=== PATIENT | female | born 1970 | race Caucasian/White ===

== ENCOUNTER 2024-01-20 18:31 | Emergency (ER) | payer BC, SELFPAY ==
[2024-01-20 18:35] VITALS: BP 134/86
--- NOTE | 2024-01-20 19:36 | ED.MUSCINJ ---
HPI-Injury
General
Chief Complaint: Musculo-Skeletal Complaint
Source: patient
Exam Limitations: none
Time Seen by Provider: 01/20/24 19:24
History of Present Illness-Injury
Initial Injury comments:
53-year-old female presents after a twisting injury to the left ankle resulting in a fall. She complains of right hand and left ankle pain and swelling. She has been unable to bear weight on her left ankle. 9 years ago, she had a fracture of her
ankle that required open reduction internal fixation. No head strike. No neck pain or back pain. No other complaints at this time.
Past History
Past History
ED Past Medical History: HTN, Hypothyroidism, Psychiatric (Depression) and Other (Psoriatic arthritis)
ED Past Surgical History: Cholecystectomy
Social History
Tobacco: Non-smoker
Alcohol: None
Personal:
Living: with family
Family History
Family History: Negative Diabetes, Hypertension, Early CAD, Asthma or Cancer
Phy Exam
Physical Exam
Physical Exam:
General: Well-appearing female no acute respiratory distress
Musculoskeletal exam: Left ankle swollen ecchymotic and tender inferior to the distal fibula. The medial malleolus and deltoid ligament area also slightly tender. There is good range of motion. Increased pain with resisted eversion of the foot.
Right hand is swollen ecchymotic and tender over the middle finger MCP. No deformity is able make a full fist
Skin is intact no laceration
Vascular: 2+ dorsalis pedis pulse left foot
Ext: NO cyanosis or edema.
Injury Course
Orders/Labs/Results
Orders:
Orders
01/20/24 18:33
CR Ankle - Left Min 3 Views Urgent
Comment:
Reason For Exam: pain
Hand, Right 3 View [CR Hand - Right Min 3 Views] Urgent
Comment:
Reason For Exam: pain
01/20/24 19:35
Ortho Boot Left- Treatment ONCE
Short or tall?: Tall
MDM/Problems Addressed
Differential Diagnosis Includes:
Left ankle and right hand pain after a fall today. Consider fracture versus sprain versus dislocation
I personally visualized x-rays of both the right hand and left ankle. There is no acute bony abnormality. I suspect sprain of the ankle. Will attempt to fit for orthopedic boot for ambulatory assistance. Recommended rest and ibuprofen. Stable
for discharge
*Critical Care Note
Total Time (30-74mins, 75-104mins- exclusive of procedures): Not Applicable
ED Attending Note
-
Portions of this chart may have been created with voice recognition software.� Occasional wrong word or��sound alike� substitutions may have occurred due to the inherent limitations of voice recognition software.
Discharge Plan
Departure
Patient Disposition: Home (Routine Discharge)
Date of Disposition: 01/20/24
Time of Disposition: 19:40
Patient with high blood pressure during this ER visit?: No
Discharge Problem:
Ankle sprain
Instructions: Muscle and Bone Pain (DC)
Prescriptions:
No Action
bupropion HCl 150 MG tablet extended release 24 hr
450 mg PO DAILY Qty: 0
levothyroxine 88 MCG tablet
88 mcg PO DAILY Qty: 0
lisinopril 10 MG tablet
10 mg PO DAILY Qty: 0
norgestimate-ethinyl estradiol [Tri-Sprintec (28)] 1 TAB tablet
1 tab PO DAILY Qty: 0
duloxetine 60 MG capsule,delayed release(DR/EC)
60 mg PO DAILY Qty: 0
abatacept [Orencia ClickJect] 125 MG/ML auto-injector
125 mg SC FR
acetaminophen [Tylenol Extra Strength] 500 MG tablet
1,000 mg PO DAILYPRN PRN (Reason: mild pain)
ibuprofen 200 MG tablet
400 mg PO TIDPRN PRN (Reason: mild pain)
multivitamin with folic acid [Tab-A-Mis] 1 TABLET tablet
1 tab PO DAILY
Fiber
2 tab PO DAILY
prednisone 10 MG tablet
10 mg PO .TAPER Qty: 30 0RF
Rx Instructions:
Take 40mg daily x3days, 30mg daily x3days,
20mg daily x3days, 10mg daily x3days.
diphenhydramine HCl [Banophen] 25 MG capsule
25 mg PO Q4HPRN PRN (Reason: allergy symptoms) Qty: 30 0RF
Referrals:
Ivonne Etienne MD [Family Provider] -
Stand Alone Forms: Return to Work
Activity Restrictions/Additional Instructions:
Rest. Use brace for support. Elevate for swelling use ibuprofen or Tylenol for pain return if worse otherwise follow-up with your doctor.
Discharge Date and Time
Print Language: CONGOLESE
== END 2024-01-20 20:25 | disposition home or self-care (01) ==
LOC: EMR 18:31
PROVIDERS: EMERGENCY PHYSICIAN Student in an Organized Health Care Education/Training Program; FAMILY PHYSICIAN Internal Medicine
DX: S93.402A Sprain of unspecified ligament of left ankle, initial encounter (principal); S60.221A Contusion of right hand, initial encounter; X50.1XXA Overexertion from prolonged static or awkward postures, initial encounter; W19.XXXA Unspecified fall, initial encounter; E03.9 Hypothyroidism, unspecified; I10 Essential (primary) hypertension; Z90.49 Acquired absence of other specified parts of digestive tract
CPT/HCPCS: 99284; 73130; 73610

== ENCOUNTER 2025-01-06 09:16 | Emergency (ER) | payer BC, SELFPAY ==
[2025-01-06 09:21] VITALS: BP 166/114
--- NOTE | 2025-01-06 09:52 | ED.GENMED ---
History of Present Illness
General
Chief Complaint: Crisis Evaluation
Time Seen by Provider: 01/06/25 09:42
History of Present Illness
History of Present Illness:
54-year-old female with history of hypertension, hyperlipidemia, hypothyroidism, and bipolar disorder on Vraylar presents to the emergency department for evaluation of increasing depression. States she has been tearful and increasingly depressed
for the past 2 months however in the past 3 weeks she has been crying nonstop. Started on hormone replacement therapy last week by her [employer]. Saw her primary care physician who checked routine outpatient labs that were unremarkable including thyroid
function. Has been seeing therapist as well. Feels as though she is getting worse and unable to participate in typical social activities. She is still bathing and showering however her states that she seems diminishing her level of
self-care. She has no SI or HI.
Past History
Past History
ED Past Medical History: HTN, Hypothyroidism, Psychiatric (Depression) and Other (Psoriatic arthritis)
ED Past Surgical History: Cholecystectomy
Social History
Tobacco: Non-smoker
Alcohol: None
Personal:
Living: with family
Family History
Family History: Negative Diabetes, Hypertension, Early CAD, Asthma or Cancer
Review of Systems
Review of Systems
Allergies reviewed?: Yes
All Other Systems: ROS reviewed and negative except as documented in HPI and ROS
Phy Exam
Physical Exam
Physical Exam:
GEN: Well appearing, NAD, WDWN
HEENT: Oral mucosa moist, no scleral icterus
Cardiac: Regular rate
Lung: No respiratory distress, no tachypnea
MSK: No gross deformity or injuries
Skin: Good color, no pallor or jaundice, no rashes
Neuro: AO x3, moves all extremities freely
Psych: Tearful, cooperative, not responding to internal stimuli
Course
Orders/Labs/Results
Orders:
Orders
01/06/25 09:50
Crisis Consult Urgent
Reason for Consult: depression
01/06/25 10:18
Test Result ONCE
01/06/25 10:27
Beta Hcg Urine Qualitative Screen [HCG, Urine Qualitative Screen] Urgent
Date Specimen was Collected: 01/06/25
Time Specimen was Collected: 10:20
Urinalysis Reflex To Culture Urgent
Date Specimen was Collected: 01/06/25
Time Specimen was Collected: 10:20
Urine Drug Abuse Screen Urgent
Date Specimen was Collected: 01/06/25
Time Specimen was Collected: 10:20
Urine Microscopic Reflex Cult Urgent
Urine Culture Urgent
LINDA Source: U
Specimen Description:
Date Specimen was Collected: 01/06/25
Time Specimen was Collected: 10:20
Abnormal Lab Results
01/06/25
10:27
Leukocyte Esterase Rfl 2+ A
(Negative)
Urine Bacteria (Reflex) Moderate A
(Negative)
Urine Albumin (Reflex) 2+ A
(Neg - Trace)
Vital Signs
Initial and Last Documented VS:
Initial Vital Signs
Temp Pulse Resp BP Pulse Ox
98.3 F 78 20 166/114 99
01/06/25 09:21 01/06/25 09:21 01/06/25 09:21 01/06/25 09:21 01/06/25 09:21
Last Documented Vital Signs
Temp Pulse Resp BP Pulse Ox
98.3 F 95 20 147/83 98
01/06/25 09:21 01/06/25 11:30 01/06/25 11:30 01/06/25 11:30 01/06/25 11:30
MDM/Problems Addressed
MDM/Problems Addressed:
Patient seen by crisis and she does not feel safe to return home given her current mental state. Although she has no SI or HI her clear spiraling symptoms warrants inpatient stay. She will transferred to the [facility], her transported
her
*Pulse Oximetry
SaO2: 99
Oxygen Mode of Delivery: Room air
Patient hypoxic: no
*Critical Care Note
Total Time (30-74mins, 75-104mins- exclusive of procedures): Not Applicable
ED Attending Note
-
Portions of this chart may have been created with voice recognition software.� Occasional wrong word or��sound alike� substitutions may have occurred due to the inherent limitations of voice recognition software.
Discharge Plan
Departure
Patient Disposition: Psych Facility
Date of Disposition: 01/06/25
Time of Disposition: 11:32
Discharge Problem:
Depression
Instructions: Depression, Adult (DC)
Prescriptions:
No Action
bupropion HCl 150 MG tablet extended release 24 hr
450 mg PO DAILY Qty: 0
levothyroxine 88 MCG tablet
88 mcg PO DAILY Qty: 0
lisinopril 10 MG tablet
10 mg PO DAILY Qty: 0
norgestimate-ethinyl estradiol [Tri-Sprintec (28)] 1 TAB tablet
1 tab PO DAILY Qty: 0
duloxetine 60 MG capsule,delayed release(DR/EC)
60 mg PO DAILY Qty: 0
abatacept [Orencia ClickJect] 125 MG/ML auto-injector
125 mg SC FR
acetaminophen [Tylenol Extra Strength] 500 MG tablet
1,000 mg PO DAILYPRN PRN (Reason: mild pain)
ibuprofen 200 MG tablet
400 mg PO TIDPRN PRN (Reason: mild pain)
multivitamin with folic acid [Tab-A-Mis] 1 TABLET tablet
1 tab PO DAILY
Fiber
2 tab PO DAILY
prednisone 10 MG tablet
10 mg PO .TAPER Qty: 30 0RF
Rx Instructions:
Take 40mg daily x3days, 30mg daily x3days,
20mg daily x3days, 10mg daily x3days.
diphenhydramine HCl [Banophen] 25 MG capsule
25 mg PO Q4HPRN PRN (Reason: allergy symptoms) Qty: 30 0RF
Referrals:
Ivonne Etienne MD [Family Provider, Internal Medicine]
Activity Restrictions/Additional Instructions:
Go directly to [facility]
Interventions
Interventions:
*Risk Screen - Suicide Last Done: 01/06/25 09:21
*General Assessment Last Done: 01/06/25 10:30
*Neglect/Abuse Screening Last Done: 01/06/25 10:30
*ED COVID-19 Vaccine History Last Done: 01/06/25 10:30
*ED Influenza Vaccine History Last Done: 01/06/25 10:30
*Nursing Disposition Last Done: 01/06/25 11:48
ED-Psychological Assessment Last Done: 01/06/25 10:30
Discharge Date and Time
Discharge Date/Time: 01/06/25 11:50
Print Language: PORTUGUESE
[2025-01-06 10:36] LABS: Urine Character Clear (Clear)
[2025-01-06 10:57] LABS: HCG, Urine Qualitative Screen Negative
[2025-01-06 11:15] LABS: Urine Squamous Cell >30 /LPF (Few); Urine Urothelial Cell 0-2 /LPF (FEW)
[2025-01-06 11:16] LABS: Urine Red Blood Cell 0-2 /HPF (0-2)
[2025-01-06 11:30] VITALS: BP 147/83
== END 2025-01-06 11:50 ==
LOC: EMR 09:16
PROVIDERS: Physician Assistant; EMERGENCY PHYSICIAN Emergency Medicine; FAMILY PHYSICIAN Internal Medicine
DX: F32.A Depression, unspecified (principal); I10 Essential (primary) hypertension; E78.5 Hyperlipidemia, unspecified; E03.9 Hypothyroidism, unspecified; L40.50 Arthropathic psoriasis, unspecified; Z79.890 Hormone replacement therapy
CPT/HCPCS: 99285; 80306; 81003; 81015; 81025; 87086